=== PATIENT | female | born 1985 | race Caucasian/White ===

== ENCOUNTER → 2023-10-06 12:55 | Outpatient (REF) | payer OTHER, SELFPAY | LOC: HWEVLT 12:55 | PROVIDERS: ATTENDING PHYSICIAN Radiology Vascular & Interventional Radiology | DX: I83.893 Varicose veins of bilateral lower extremities with other complications (principal) | CPT/HCPCS: 93970 ==

== ENCOUNTER → 2023-12-16 12:58 | Outpatient (REF) | payer OTHER, SELFPAY | LOC: HWEVLT 12:58 | PROVIDERS: ATTENDING PHYSICIAN Radiology Diagnostic Radiology | DX: I83.891 Varicose veins of right lower extremity with other complications (principal) | CPT/HCPCS: 93971 ==

== ENCOUNTER → 2024-01-21 09:36 | Outpatient (REF) | payer OTHER, SELFPAY | LOC: HWEVLT 09:36 | PROVIDERS: ATTENDING PHYSICIAN Radiology Diagnostic Radiology | DX: I83.891 Varicose veins of right lower extremity with other complications (principal) | CPT/HCPCS: 36478; C1769 ==

== ENCOUNTER → 2024-02-11 09:43 | Outpatient (REF) | payer OTHER, SELFPAY | LOC: HWEVLT 09:43 | PROVIDERS: ATTENDING PHYSICIAN Radiology Vascular & Interventional Radiology | DX: I83.891 Varicose veins of right lower extremity with other complications (principal) | CPT/HCPCS: 93971 ==